=== PATIENT | male | born 1970 | race Caucasian/White ===

== ENCOUNTER 2016-05-23 07:42 | Emergency (ER) | payer OTHER ==
[2016-05-23 07:47] VITALS: RESP 18
[2016-05-23] MEDS ORDERED: ONDANSETRON 4 MG/2 ML VIAL IVP ONE (07:57)
[2016-05-23] MEDS ORDERED: HYDROmorphONE/DILAUDID 1 MG/ML SYR IVP ONE (07:57)
[2016-05-23] MEDS ORDERED: NS 1,000 ML IV ONE ×2 (07:57→10:25)
--- NOTE | 2016-05-23 07:58 | EDPHY ---
H & P Stated Complaint: ruq abd pain/nausea Time Seen by Provider: 05/23/16 07:48 HPI/ROS: CHIEF COMPLAINT: Right upper quadrant pain HISTORY OF PRESENT ILLNESS: Patient is a 45-year-old man who comes to the emergency department complaining of right upper quadrant pain that woke from sleep about 1:00 a.m..he states that he does have a history of heartburn but this does not feel similar. Feels nauseous but has not vomited. No diarrhea. No fever. No history of abdominal surgery, no cardiac history. His pain is severe. He is not a heavy drinker. REVIEW OF SYSTEMS: Constitutional: denies: chills, fever, recent illness, recent injury EENTM: denies: blurred vision, double vision, nose congestion Respiratory: denies: cough, shortness of breath Cardiac: denies: chest pain, irregular heart rate, lightheadedness, palpitations Gastrointestinal/Abdominal: See HPI Genitourinary: denies: dysuria, frequency, hematuria, pain Musculoskeletal: denies: joint pain, muscle pain Skin: denies: lesions, rash, jaundice, bruising Neurological: denies: headache, numbness, paresthesia, tingling, dizziness, weakness Hematologic/Lymphatic: denies: blood clots, easy bleeding, easy bruising Immunologic/allergic: denies: HIV/AIDS, transplant EXAM: GENERAL: Well-appearing, well-nourished and in no acute distress. HEAD: Atraumatic, normocephalic. EYES: Pupils equal round and reactive to light, extraocular movements intact, sclera anicteric, conjunctiva are normal. ENT: TMs normal, nares patent, oropharynx clear without exudates. Moist mucous membranes. NECK: Normal range of motion, supple without lymphadenopathy or JVD. LUNGS: Breath sounds clear to auscultation bilaterally and equal. No wheezes rales or rhonchi. HEART: Regular rate and rhythm without murmurs, rubs or gallops. ABDOMEN: Upper quadrant tenderness exam, negative Damon sign BACK: No CVA tenderness, no spinal tenderness, step-offs or deformities EXTREMITIES: Normal range of motion, no pitting or edema. No clubbing or cyanosis. NEUROLOGICAL: Cranial nerves II through XII grossly intact. Normal speech, normal gait. 5/5 strength, normal movement in all extremities, normal sensation PSYCH: Normal mood, normal affect. SKIN: Warm, dry, normal turgor, no visible rashes or lesions. Source: Patient Exam Limitations: No limitations - Personal History Current Tetanus/Diphtheria Vaccine: Yes - Medical/Surgical History Hx Asthma: No Hx Chronic Respiratory Disease: No Hx Diabetes: No Hx Cardiac Disease: No Hx Renal Disease: No Hx Cirrhosis: No Hx Alcoholism: No Hx HIV/AIDS: No Hx Splenectomy or Spleen Trauma: No Other PMH: kidney stones - Family History Significant Family History: No pertinent family hx - Social History Smoking Status: Never smoked Alcohol Use: Sober Drug Use: None Constitutional: Initial Vital Signs Temperature (C) 36.6 C 05/23/16 07:44 Heart Rate 64 05/23/16 07:44 Respiratory Rate 18 05/23/16 07:44 Blood Pressure 125/77 H 05/23/16 07:44 O2 Sat (%) 96 05/23/16 07:44 O2 Delivery Mode Room Air O2 (L/minute) 2 Allergies/Adverse Reactions: No Known Allergies Allergy (Unverified 05/23/16 07:43) Home Medications: Medication Instructions Recorded Hydrocodone/APAP 5/325 [[place] 1 - 2 each PO Q4 PRN #10 tab 05/23/16 5/325] Ketorolac Tromethamine [Toradol] 10 mg PO Q6H #16 tab 05/23/16 Nexium 05/23/16 Ondansetron Odt [Zofran Odt 4 mg 4 mg PO Q4 PRN #20 tab 05/23/16 (RX)] Medical Decision Making - Diagnostics EKG Interpretation: An EKG obtained and was read and documented in trace view. Please see trace view for full reading and report. No acute ischemic changes Imaging: Discussed imaging studies w/ housecalls nurse Radiologist ED Course/Re-evaluation: 9:10 a.m. we discussed the ultrasound results. We discussed outpatient treatment for cholecystitis. We discussed follow-up for his liver cyst. He understands and agrees with this plan. He declines further workup or testing at this time. Differential Diagnosis: Partial list of the Differential diagnosis considered include but were not limited to; gallstone, pancreatitis, hepatitis, gastritis, GERD and although unlikely based on the history and physical exam, I also considered appendicitis , kidney stone, urinary tract infection. I discussed these differential diagnoses and the plan with the patient as well as the usual and expected course. The patient understands that the diagnosis is provisional and that in medicine we are not always correct and that further workup is often warranted. Usual and customary warnings were given. All of the patient's questions were answered. The patient was instructed to return to the emergency department should the symptoms at all worsen or return, otherwise to followup with the physician as we discussed. - Data Points Laboratory Results: Laboratory Results 05/23/16 08:00 05/23/16 08:00 Medications Given: Discontinued Medications Hydromorphone HCl (Dilaudid) 1 mg IVP EDNOW ONE Stop: 05/23/16 07:58 Last Admin: 05/23/16 08:14 Dose: 1 mg Sodium Chloride (Ns) 1,000 mls @ 0 mls/hr IV ONCE ONE PRN Reason: Wide Open Stop: 05/23/16 07:58 Last Admin: 05/23/16 08:14 Dose: 1,000 mls Ketorolac Tromethamine (Toradol) 30 mg IVP EDNOW ONE Stop: 05/23/16 09:14 Last Admin: 05/23/16 09:20 Dose: 30 mg Ondansetron HCl (Zofran) 4 mg IVP EDNOW ONE Stop: 05/23/16 07:58 Last Admin: 05/23/16 08:14 Dose: 4 mg Departure - Departure Disposition: Home, Routine, Self-Care Clinical Impression: Cholelithiasis Qualifiers: Cholelithiasis location: gallbladder Cholecystitis presence: without cholecystitis Biliary obstruction: without biliary obstruction Qualified Code(s) : K80.20 - Calculus of gallbladder without cholecystitis without obstruction Condition: Fair Instructions: Gallstones (ED) Additional Instructions: Have a repeat ultrasound in 6 months to follow up with a 1.2 cm complex cyst to the right lobe of the liver. Referrals: Ga Coughlin [Primary Care Provider] - As per Instructions Carmita Pradhan MD [Medical Doctor] - As per Instructions Prescriptions: Hydrocodone/APAP 5/325 [[place] 5/325] 1 - 2 each PO Q4 PRN #10 tab PRN Reason: Pain, Mild Ketorolac Tromethamine [Toradol] 10 mg PO Q6H #16 tab Ondansetron Odt [Zofran Odt 4 mg (RX)] 4 mg PO Q4 PRN #20 tab PRN Reason: Nausea & Vomiting
[2016-05-23 08:10] LABS: % IMMATURE GRANULYOCYTES 0.3 % (0.0-1.1); ABSOLUTE IMMATURE GRANULOCYTES 0.03 10^3/uL (0.00-0.10); ADD DIFF? NO; ADD MORPH? NO; ADD SCAN? NO; ATYPICAL LYMPHOCYTE FLAG 0 (0-99); FRAGMENT RBC FLAG 0 (0-99); HEMATOCRIT 46.4 % (40.0-51.0); LEFT SHIFT FLG 0 (0-99); LIPEMIA HEMOLYSIS FLAG 90 (0-99); MEAN CELL HEMOGLOBIN 30.1 pg (27.9-34.1); MEAN CELL HEMOGLOBIN CONCENTR. 34.5 g/dL (32.4-36.7); MEAN CELL VOLUME 87.4 fL (81.5-99.8); PLATELET CLUMPS FLAG 0 (0-99); PLATELET COUNT 275 10^3/uL (150-400); RED BLOOD CELL COUNT 5.31 10^6/uL (4.40-6.38); RED CELL DISTRIBUTION WIDTH 12.2 % (11.5-15.2)
[2016-05-23 08:32] LABS: ALANINE AMINOTRANSFERASE 76 IU/L (21-72); ALBUMIN 4.6 g/dL (3.5-5.0); ALKALINE PHOSPHATASE 55 IU/L (38-126); ANION GAP 14 mEq/L (8-16); ASPARTATE AMINOTRANSFERASE 34 IU/L (17-59); BILIRUBIN,TOTAL 0.8 mg/dL (0.1-1.4); BILIRUBIN-CONJUGATED 0.5 mg/dL (0.0-0.5); BILIRUBIN-UNCONJUGATED 0.3 mg/dL (0.0-1.1); CALCIUM 9.5 mg/dL (8.5-10.4); CARBON DIOXIDE 26 mEq/l (22-31); CHLORIDE 104 mEq/L (97-110); CREATININE 0.9 mg/dL (0.7-1.3); GLOMERULAR FILTRATION RATE > 60; GLUCOSE 105 mg/dL (70-100); SODIUM 144 mEq/L (134-144); TOTAL PROTEIN 7.9 g/dL (6.3-8.2)
[2016-05-23] MEDS ORDERED: KETOROLAC 30 MG/1 ML SDV IVP ONE (09:13)
[2016-05-23] MEDS ORDERED: KETOROLAC 30 MG/1 ML SDV ONE (09:17)
--- NOTE | 2016-05-23 09:19 | CPEKG ---
Heart Rate: 63 RR Interval: 952 P-R Interval: 144 QRSD Interval: 100 QT Interval: 408 QTC Interval: 418 P [place]: 21 QRS [place]: 180 T Wave [place]: 50 EKG Severity - OTHERWISE NORMAL ECG - EKG Impression: SINUS RHYTHM EKG Impression: RIGHT AXIS DEVIATION Electronically Signed By: Brendon Bañuelos 23-May-2016 09:02:29
[2016-05-23 10:13] VITALS: BP 128/102; PULSE 94; TEMP 98.2; O2SAT 97
== END 2016-05-23 10:35 | disposition home or self-care (01) ==
DX: K80.20 Calculus of gallbladder without cholecystitis without obstruction (principal)
CPT/HCPCS: 96374; J1170; J1885; J2405